=== PATIENT | male | born 2000 ===

== ENCOUNTER 2020-11-02 13:17 | Emergency (ER) | payer OTHER, SELFPAY ==
[2020-11-02 13:31] VITALS: BP 125/87; PULSE 107; RESP 18; TEMP 37.4; O2SAT 98
[2020-11-02 14:07] LABS: COVID19 -Nasal RAPID Negative (Negative)
[2020-11-02 16:29] VITALS: BP 116/76; PULSE 94; RESP 14; TEMP 37; O2SAT 100
[2020-11-02 17:19] LABS: Monotest Negative (Negative)
[2020-11-02 18:04] VITALS: BP 114/74; PULSE 91; O2SAT 100
--- NOTE | 2020-11-02 20:28 | ED_ITS ---
HPI - URI/Sore Throat <Jerri Ospina PA-C - Last Filed: 11/02/20 20:45> General Chief Complaint: Upper Respiratory Symptoms Stated Complaint: possible strep throat Time Seen by Provider: 11/02/20 16:29 Source: patient Mode of arrival: Ambulatory History of Present Illness HPI Narrative: 20-year-old male without PMH, COVID vaccinated who presents the ER complaining of sore throat that is been ongoing for few days. States that sore throat is worse with swallowing it is associated with increased congestion and phlegm production especially the morning. States that he has noticed some right posterior cervical lymph node swelling as well as a mild upset stomach for the last 2 days. Denies history of strep. Denies fever, cough, or additional symptoms. Related Data Allergies Allergy/AdvReac Type Severity Reaction Status Date / Time No Known Drug Allergies Allergy Verified 11/02/20 13:33 Review of Systems <FRANKIE Maurice Last Filed: 11/02/20 20:45> Review of Systems Narrative: General: denies fever, chills Head/Neck: denies headache, neck pain Eyes: denies visual changes, eye pain Cardio: denies chest pain, palpitations Respiratory: denies shortness of breath, cough GI: denies abdominal pain, nausea, vomiting, or diarrhea : denies dysuria, hematuria MSK: denies joint pain, muscle weakness Skin: denies rash, itching Neuro: denies numbness, tingling Exam <Jerri Ospina PA-C - Last Filed: 11/02/20 20:45> Narrative Exam Narrative: Independently reviewed vitals signs and nursing notes. General: Awake, alert, nontoxic, no cardiorespiratory distress Head/Neck: Atraumatic, neck full range of motion, right posterior lymphadenopathy Eyes: EOMI, conjunctiva normal Nose: nares patent, no rhinorrhea Mouth/Throat: moist mucus membranes, posterior pharynx with mild erythema to bilateral tonsils with scant exudate., no oral lesions Cardio: Regular rate and rhythm, no peripheral edema Respiratory: CTAB unlabored without wheezing, stridor, or rales. No retractions. GI: Abdomen soft, nontender MSK: Moves all extremities, neurovascularly intact Skin: Normal capillary refill, no rash Neuro: Normal speech and cognition, normal gait Initial Vital Signs Initial Vital Signs: Vital Signs Temperature 99.4 F 11/02/20 13:31 Pulse Rate 107 H 11/02/20 13:31 Respiratory Rate 18 11/02/20 13:31 Blood Pressure 125/87 11/02/20 13:31 Pulse Oximetry 98 11/02/20 13:31 <Annie Ornelas DO - Last Filed: 11/07/20 02:27> Initial Vital Signs Initial Vital Signs: Vital Signs Temperature 99.4 F 11/02/20 13:31 Pulse Rate 107 H 11/02/20 13:31 Respiratory Rate 18 11/02/20 13:31 Blood Pressure 125/87 11/02/20 13:31 Pulse Oximetry 98 11/02/20 13:31 Course <FRANKIE Maurice Last Filed: 11/02/20 20:45> Orders Ordered: ED Orders 11/02/20 13:41 COVID19 -Nasal swab/Pre-Proc Stat 11/02/20 16:58 Monotest Stat 11/02/20 17:56 Throat Culture Stat Vital Signs Vital signs: Vital Signs - 8 hr 11/02/20 13:31 11/02/20 16:29 11/02/20 18:04 Temperature 99.4 F 98.6 F Pulse Rate 107 H 94 H 91 H Respiratory Rate 18 14 Blood Pressure 125/87 116/76 114/74 Pulse Oximetry 98 100 100 <Annie Ornelas DO - Last Filed: 11/07/20 02:27> Orders Ordered: ED Orders 11/02/20 13:41 COVID19 -Nasal swab/Pre-Proc Stat 11/02/20 16:58 Monotest Stat 11/02/20 17:56 Throat Culture Stat Vital Signs Vital signs: Vital Signs - 8 hr 11/02/20 13:31 11/02/20 16:29 11/02/20 18:04 Temperature 99.4 F 98.6 F Pulse Rate 107 H 94 H 91 H Respiratory Rate 18 14 Blood Pressure 125/87 116/76 114/74 Pulse Oximetry 98 100 100 MDM - URI/Sore Throat <FRANKIE Maurice Last Filed: 11/02/20 20:45> Lab Data Labs: Lab Results 11/02/20 11/02/20 Range/Units 13:41 16:58 SARS-CoV-2 (PCR) Negative (Negative) Monoscreen Negative (Negative) Point of Care Testing Rapid Strep A Negative MDM Narrative Medical decision making narrative: 20-year-old male with few day history of pharyngitis. Strep negative, will follow results of throat culture. COVID negative. Monospot negative. Please follow up with PCP as directed. Return to clinic/ER precautions discussed with patient for new, not-improving, or worsening symptoms. <Annie Ornelas DO - Last Filed: 11/07/20 02:27> Lab Data Labs: Lab Results 11/02/20 11/02/20 Range/Units 13:41 16:58 SARS-CoV-2 (PCR) Negative (Negative) Monoscreen Negative (Negative) Point of Care Testing Rapid Strep A Negative Discharge Plan Departure Patient Disposition: Home Clinical Impression: Pharyngitis Qualifiers: Pharyngitis/tonsillitis etiology: unspecified etiology Qualified Code(s): J02.9 - Acute pharyngitis, unspecified Activity Restrictions/Additional Instructions: *You have been diagnosed with [pharyngitis] *What to do: [ ] New medication prescriptions sent to your pharmacy: [ ] [ ] New medication written as a paper prescription [X] No new medications given COVID test is negative. Strep test is negative. [place] test is negative. Most likely viral sore throat. Will follow results of throat culture and contact you culture grows bacteria as you may need antibiotics if so. * Please follow-up with your primary care provider in 2-3 days, call for an appointment. Let them know you were seen in the emergency department and that we ask you to be seen in follow-up. * if you do not have a primary care provider, please contact the [facility] Resource line at [phone]. They will ask some questions about your medical history and help to get up with a doctor in the community. * Return to the if you should have any new, worsening, or concerning symptoms, such as [worsen sore throat, fever, neck pain]. <Annie Ornelas DO - Last Filed: 11/07/20 02:27> Cosign ED Attending Crystalature Attestation: I was immediately available in the department for consultation. Documentation has been reviewed.
== END 2020-11-02 18:34 | disposition home or self-care (01) ==
PROVIDERS: Emergency Medicine; Emergency Provider Physician Assistant
DX: J02.9 Acute pharyngitis, unspecified (principal); Z20.822 Contact with and (suspected) exposure to COVID-19
CPT/HCPCS: 36415; 86318; 87070; 87635; 87880; 99282; C9803